=== PATIENT | male | born 1995 ===

== ENCOUNTER → 2017-05-01 | Day surgery (SDC) | payer BC ==
[~2017-05-01] MED LIST: Bupivacaine/Epinephrine 0.25% 30 ML VIAL ONE; Dexamethasone 20 MG/5 ML VIAL ONE; Fentanyl 100 MCG/2 ML VIAL ONE; Fentanyl 250 MCG/5 ML VIAL ONE; Glycopyrrolate 0.2 MG/ML 5 ML SYRINGE ONE; Ketorolac Tromethamine 30 MG/ML VIAL ONE; Lidocaine 1% PF 5 ML VIAL ONE; Midazolam HCl 2 mg/2 ml Vial ONE; Midazolam HCl 2 mg/ml Syrup 5 ml UD Cup ONE; Ondansetron HCl/PF 4 MG/2 ML Vial ONE; PHENYLEPHRINE-NS 100 MCG/ML 10 ML SYRINGE ONE; PROPOFOL 200 MG/20 ML VIAL ONE; Succinylcholine Chloride 20 MG/ML 10 ml SYRINGE FS ONE; diphenhydrAMINE 50 MG/ML VIAL ONE
--- NOTE | 2017-05-01 09:47 | OP ---
DATE OF PROCEDURE: 05/01/2017 PREOPERATIVE DIAGNOSIS: Acute appendicitis. SURGEON: Frank Damon M.D. PROCEDURE PERFORMED: Laparoscopic appendectomy. INDICATIONS: This is a 21-year-old male who presented with a 2-day history of right lower quadrant p ain. CT showed appendicitis. FINDINGS: Acute suppurative nonperforated appendicitis. PROCEDURE IN DETAIL: After informed consent was obtained, the patient was taken to the operating don m and given general endotracheal anesthesia. He was placed in the supine position. The abdomen was prepped and draped in usual fashion. Local anesthesia infiltrated subcutaneously and deep and a subu mbilical incision was performed. The subcu divided sharply. The fascia grasped, 2 stay sutures of 0 Vicryl placed to side of midline. Midline incised. Digital palpation revealed no local adhesions. A blunt 10/12 mm trocar inserted. Pneumoperitoneum was created to a pressure of 15 mmHg. Zero degr ee laparoscope inserted and under direct vision, two 5-mm ports were placed, 1 suprapubic and 1 right lateral abdomen. The appendix was found. It was acutely inflamed, the mesoappendix divided utilizi ng the LigaSure. The base of the appendix was divided utilizing the linear 45 mm white load stapler. The appendix was placed in an Endosac and removed from the abdomen in an Endosac. Hemostasis was a ssured. The abdomen irrigated and irrigation fluid removed. Hemostasis was assured. Trocars and re tractors removed. The fascia closed with interrupted 0 Vicryl suture. The skin closed with interrup deborah 4-0 Rapide. Dermabond applied. The patient tolerated the procedure well and was transferred to recovery in good condition. Sponge and needle count verified correct x2.
== END ==
LOC: SDC/OP 07:11
PROVIDERS: ATTEND Surgery
PROC: 0DTJ4ZZ Resection of Appendix, Percutaneous Endoscopic Approach (ICD-10-PCS; principal; 2017-05-01)
DX: K35.80 Unspecified acute appendicitis (principal)
CPT/HCPCS: 88304; 96374; J1100; J1200; J1885; J2001; J2250; J2405; J2704; J3010